=== PATIENT | female | born 1995 | race African-American/Black ===

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

== ENCOUNTER 2017-03-14 16:49 | Emergency (ER) | payer MEDICAID ==
[2016-11-02 05:37] VITALS: BMI 44.2
== END 2017-03-14 18:18 | disposition home or self-care (01) ==
LOC: D.ER 16:49
DX: J06.9 Acute upper respiratory infection, unspecified (principal); J01.90 Acute sinusitis, unspecified

== ENCOUNTER 2017-07-07 18:50 | Outpatient (CLI) | payer MEDICAID ==
[2016-11-02 05:37] VITALS: BMI 44.2
[2017-07-07 20:06] LABS: HEMATOCRIT 36.6 % (36.0-48.0); MCH 24.3 pg (26.0-34.0); MCHC 32.8 g/dL (31.0-37.0); MCV 74.2 fL (80.0-100.0); PLATELET COUNT 198 10x3/uL (130-400); RBC 4.93 10x6/uL (4.00-5.40); RDW 15.5 % (11.5-14.5); WBC 12.5 10x3/uL (4.8-10.8)
[2017-07-07 20:14] LABS: APPEARANCE CLEAR (CLEAR); BILIRUBIN NEGATIVE (NEGATIVE); COLOR YELLOW (YELLOW); GLUCOSE NEGATIVE (NEGATIVE); KETONE NEGATIVE (NEGATIVE); NITRITE NEGATIVE (NEGATIVE); PROTEIN NEGATIVE (NEGATIVE); UROBILINOGEN NORMAL (NORMAL)
[2017-07-07 20:16] LABS: WHITE CELLS - URINE 0-5 /hpf (0-5)
[2017-07-07 20:18] LABS: BACTERIA FEW /hpf (NONE SEEN); EPITHELIAL CELLS 0-5 /hpf (0-5); RED CELLS - URINE 0-5 /hpf (0-5)
[2017-07-07 20:45] LABS: LYMPHOCYTES 15 % (15-50); MONOCYTES 1 % (2-11); NEUTROPHILS 83 % (40-80)
[2017-07-07 20:46] LABS: PLATELET ESTIMATE NORMAL; POIKILOCYTOSIS OCC; ROULEAUX OCC; TARGET CELLS OCC
== END 2017-07-08 01:36 | disposition home or self-care (01) ==
LOC: D.ER 18:50 → D.LDO 18:50
PROVIDERS: Family Medicine
DX: O26.892 Other specified pregnancy related conditions, second trimester (principal); Z3A.23 23 weeks gestation of pregnancy; R10.9 Unspecified abdominal pain

== ENCOUNTER → 2017-08-11 13:53 | Outpatient (CLI) | payer MEDICAID ==
[2016-11-02 05:37] VITALS: BMI 44.2
[2017-08-11 14:30] LABS: APPEARANCE CLEAR (CLEAR); BILIRUBIN NEGATIVE (NEGATIVE); COLOR YELLOW (YELLOW); GLUCOSE NEGATIVE (NEGATIVE); KETONE SMALL mg/dL (NEGATIVE); NITRITE NEGATIVE (NEGATIVE); PROTEIN NEGATIVE (NEGATIVE); UROBILINOGEN NORMAL (NORMAL)
[2017-08-11 14:32] LABS: RED CELLS - URINE 0-5 /hpf (0-5); WHITE CELLS - URINE 0-5 /hpf (0-5)
[2017-08-11 14:33] LABS: BACTERIA MODERATE /hpf (NONE SEEN)
[2017-08-11 14:37] LABS: UDS - AMPHET NEGATIVE QUAL (NEGATIVE); UDS - BARB NEGATIVE QUAL (NEGATIVE); UDS - BENZO NEGATIVE QUAL (NEGATIVE); UDS - COCAINE NEGATIVE QUAL (NEGATIVE); UDS - OPIATE NEGATIVE QUAL (NEGATIVE); UDS - PCP NEGATIVE QUAL (NEGATIVE); UDS - THC NEGATIVE QUAL (NEGATIVE)
== END | disposition home or self-care (01) ==
LOC: D.LDO 13:53
PROVIDERS: Obstetrics & Gynecology
DX: O26.893 Other specified pregnancy related conditions, third trimester (principal); Z3A.28 28 weeks gestation of pregnancy

== ENCOUNTER 2017-08-18 17:53 | Outpatient (CLI) | payer MEDICAID ==
[2016-11-02 05:37] VITALS: BMI 44.2
== END 2017-08-18 19:46 | disposition home or self-care (01) ==
LOC: D.ER 17:53 → D.LDO 17:53 → EDSTATUS 18:00 → D.LDO 19:46
DX: O26.893 Other specified pregnancy related conditions, third trimester (principal); Z3A.29 29 weeks gestation of pregnancy; R42 Dizziness and giddiness; R53.1 Weakness

== ENCOUNTER 2017-09-05 22:24 | Outpatient (CLI) | payer MEDICAID ==
[2016-11-02 05:37] VITALS: BMI 44.2
[2017-09-06 00:51] LABS: APPEARANCE HAZY (CLEAR); BILIRUBIN NEGATIVE (NEGATIVE); COLOR YELLOW (YELLOW); GLUCOSE NEGATIVE (NEGATIVE); KETONE NEGATIVE (NEGATIVE); NITRITE NEGATIVE (NEGATIVE); PROTEIN NEGATIVE (NEGATIVE); UROBILINOGEN NORMAL (NORMAL)
[2017-09-06 00:52] LABS: BACTERIA MODERATE /hpf (NONE SEEN); EPITHELIAL CELLS 0-5 /hpf (0-5); RED CELLS - URINE 0-5 /hpf (0-5); WHITE CELLS - URINE 0-5 /hpf (0-5)
== END 2017-09-06 02:12 | disposition home or self-care (01) ==
LOC: D.LDO 22:24
PROVIDERS: Obstetrics & Gynecology
DX: O26.899 Other specified pregnancy related conditions, unspecified trimester (principal); Z3A.00 Weeks of gestation of pregnancy not specified

== ENCOUNTER 2017-09-25 20:43 | Outpatient (CLI) | payer SELFPAY ==
[2016-11-02 05:37] VITALS: BMI 44.2
[2017-09-25 21:39] LABS: APPEARANCE CLEAR (CLEAR); BILIRUBIN 1+ (NEGATIVE); COLOR DK YELLOW (YELLOW); GLUCOSE NEGATIVE (NEGATIVE); KETONE MODERATE mg/dL (NEGATIVE); NITRITE NEGATIVE (NEGATIVE); PROTEIN NEGATIVE (NEGATIVE)
[2017-09-25 21:40] LABS: RED CELLS - URINE 0-5 /hpf (0-5); WHITE CELLS - URINE 0-5 /hpf (0-5)
[2017-09-25 21:42] LABS: BACTERIA FEW /hpf (NONE SEEN)
[2017-09-25 21:58] LABS: UDS - AMPHET NEGATIVE QUAL (NEGATIVE); UDS - BARB NEGATIVE QUAL (NEGATIVE); UDS - BENZO NEGATIVE QUAL (NEGATIVE); UDS - COCAINE NEGATIVE QUAL (NEGATIVE); UDS - OPIATE NEGATIVE QUAL (NEGATIVE); UDS - PCP NEGATIVE QUAL (NEGATIVE); UDS - THC NEGATIVE QUAL (NEGATIVE)
[2017-09-25 22:29] LABS: APPEARANCE HAZY (CLEAR); BILIRUBIN 1+ (NEGATIVE); COLOR YELLOW (YELLOW); GLUCOSE NEGATIVE (NEGATIVE); KETONE MODERATE mg/dL (NEGATIVE); NITRITE NEGATIVE (NEGATIVE); PROTEIN NEGATIVE (NEGATIVE); RED CELLS - URINE 0-5 /hpf (0-5); SPECIFIC GRAVITY 1.015 (1.005-1.020)
[2017-09-25 22:30] LABS: BACTERIA FEW /hpf (NONE SEEN)
== END 2017-09-26 00:51 | disposition home or self-care (01) ==
LOC: D.LDO 20:43 → D.LD 22:52 → D.LDO 09-26 00:51
PROVIDERS: Obstetrics & Gynecology
DX: O26.899 Other specified pregnancy related conditions, unspecified trimester (principal); Z3A.00 Weeks of gestation of pregnancy not specified; R10.30 Lower abdominal pain, unspecified

== ENCOUNTER → 2017-10-08 00:01 | Outpatient (CLI) | payer SELFPAY ==
[2016-11-02 05:37] VITALS: BMI 44.2
[2017-10-08 00:33] LABS: COLOR DK YELLOW (YELLOW)
[2017-10-08 00:34] LABS: APPEARANCE CLOUDY (CLEAR); BILIRUBIN NEGATIVE (NEGATIVE); GLUCOSE NEGATIVE (NEGATIVE); KETONE NEGATIVE (NEGATIVE); NITRITE NEGATIVE (NEGATIVE); PROTEIN NEGATIVE (NEGATIVE); UROBILINOGEN NORMAL (NORMAL)
[2017-10-08 00:44] LABS: BACTERIA MODERATE /hpf (NONE SEEN); CALCIUM OXALATE CRYSTALS >50 /hpf (NONE SEEN); GRANULAR CAST OCC /lpf (NONE SEEN); HYALINE CAST OCC /lpf (NONE SEEN); RED CELLS - URINE 0-5 /hpf (0-5)
== END | disposition home or self-care (01) ==
LOC: D.LDO 00:01
PROVIDERS: Obstetrics & Gynecology
DX: O26.893 Other specified pregnancy related conditions, third trimester (principal); Z3A.36 36 weeks gestation of pregnancy

== ENCOUNTER 2017-10-12 01:48 | Outpatient (CLI) | payer SELFPAY ==
[2016-11-02 05:37] VITALS: BMI 44.2
== END 2017-10-12 02:33 ==
LOC: D.LDO 01:48
DX: O26.893 Other specified pregnancy related conditions, third trimester (principal); Z3A.37 37 weeks gestation of pregnancy

== ENCOUNTER 2017-10-16 00:52 | Outpatient (CLI) | payer SELFPAY ==
[2016-11-02 05:37] VITALS: BMI 44.2
== END 2017-10-16 01:48 ==
LOC: D.LDO 00:52
DX: O26.893 Other specified pregnancy related conditions, third trimester (principal); Z3A.36 36 weeks gestation of pregnancy

== ENCOUNTER → 2017-10-21 10:56 | Outpatient (CLI) | payer SELFPAY ==
[2016-11-02 05:37] VITALS: BMI 44.2
[2017-10-21 11:48] LABS: APPEARANCE HAZY (CLEAR); BILIRUBIN NEGATIVE (NEGATIVE); COLOR DK YELLOW (YELLOW); GLUCOSE NEGATIVE (NEGATIVE); KETONE LARGE mg/dL (NEGATIVE); NITRITE NEGATIVE (NEGATIVE); PROTEIN NEGATIVE (NEGATIVE); UROBILINOGEN NORMAL (NORMAL)
[2017-10-21 11:55] LABS: BACTERIA MODERATE /hpf (NONE SEEN); EPITHELIAL CELLS 0-5 /hpf (0-5); RED CELLS - URINE OCC /hpf (0-5)
== END | disposition home or self-care (01) ==
LOC: D.LDO 10:56
PROVIDERS: Obstetrics & Gynecology
DX: O26.893 Other specified pregnancy related conditions, third trimester (principal); Z3A.38 38 weeks gestation of pregnancy

== ENCOUNTER 2017-10-24 08:45 | Inpatient (IN) | payer MEDICAID ==
[~2017-10-24] VITALS: Ht 157.5 cm; Wt 110.5 kg
--- NOTE | ~2017-10-24 | DS ---
PATIENT:MONICA MCLAIN :89 MEDICAL RECORD: [id number] DISCHARGE SUMMARY ADMISSION DATE: 10/24/17 DISCHARGE DATE: 10/26/17 HOSPITAL COURSE: The patient was admitted on 10/24/2017. A 22-year-old at 38 weeks and 6 days, who was admitted in active labor. The patient was noted to be group B strep positive with a history of chlamydia. The patient reported no other significant past medical history. The patient reported no previous surgeries and no allergies. MEDICATIONS: Included just vitamins. FAMILY HISTORY: The patient reported no significant family history. SOCIAL HISTORY: Negative for tobacco, alcohol, or drugs. PHYSICAL EXAMINATION: VITAL SIGNS: On initial evaluation, vital signs were stable. LUNGS: Clear to auscultation. CARDIOVASCULAR: Regular rate and rhythm. PELVIC: Uterus was appropriately sized and appropriately tender. EXTREMITIES: Lower extremities were free of Homans sign, erythema, or swelling. Initial assessment revealed a category 1 tracing with the 140 heart rate with moderate variability. Contractions were noted to be regular. Admit hemoglobin was 11.2 with a platelet count of 230. ASSESSMENT AND PLAN: At that time: 1. Term intrauterine at 38 weeks and 6 days. 2. Labor. 3. Positive group B strep. Plan at that time to start antibiotics for the group B strep status with expectant management of labor and a Category 1 tracing. Following first dose of antibiotics, AROM was performed with clear fluid. The patient progressed to the second stage of labor without difficulty and had normal spontaneous vaginal delivery. Placenta was delivered spontaneously intact. Delivery note is as on the chart. The patient did well overnight on day #0, tolerating p.o. pain meds and general diet, ambulating well and voiding freely. On the morning of day #1, the patient continued to do well. Vital signs were stable. The patient was afebrile, tolerating general diet and p.o. pain meds. The patient was kept overnight on day #1 due to the baby's group B strep status. On the morning of day #2, the patient continued to do well. Vital signs were stable. The patient was afebrile. Hemoglobin was found to be appropriate for blood loss. The patient was discharged home on day #2 with instructions to follow up in 4 weeks. TRANSINT:[id number] Voice Confirmation ID: [id number] DOCUMENT ID: [id number] DISCHARGE SUMMARY REPORT [id number] MONICA MCLAIN MICHAEL W MD at 1259 CC: [id number] DICTATION DATE: 12/02/17 0832 BLAST FURNACE HELPER: 12/02/17 1148 DIS IN 10/26/17 [place] [id number] [place] [id number]
[2017-10-24 09:27] LABS: HEMATOCRIT 34.6 % (36.0-48.0); HEMOGLOBIN 11.2 g/dL (12-16); MCHC 32.4 g/dL (31.0-37.0); PLATELET COUNT 230 10x3/uL (130-400); RBC 5.09 10x6/uL (4.00-5.40); RDW 18.4 % (11.5-14.5); WBC 12.1 10x3/uL (4.8-10.8)
[2017-10-24 12:39] VITALS: BP 114/65; Ht 157.5 cm; Wt 110.5 kg
[2017-10-24 20:33] VITALS: BP 106/60
[2017-10-25 08:21] LABS: RAPID PLASMA REAGIN Non Reactive (Non Reactive)
[2017-10-25 08:28] VITALS: BP 133/73
[2017-10-25 17:45] VITALS: BP 128/71
[2017-10-25 20:15] VITALS: BP 114/64
[2017-10-26 07:48] LABS: BASOPHILS 0.2 % (0-2); EOSINOPHILS 1.6 % (0-7); HEMATOCRIT 29.5 % (36.0-48.0); HEMOGLOBIN 9.3 g/dL (12-16); IMMATURE GRANULOCYTES 0.7 % (0-5); LYMPHOCYTES 24.6 % (15-50); MCH 21.8 pg (26.0-34.0); MCHC 31.5 g/dL (31.0-37.0); MCV 69.1 fL (80.0-100.0); MONOCYTES 10.3 % (2-11); NEUTROPHILS 62.6 % (40-80); PLATELET COUNT 235 10x3/uL (130-400); RBC 4.27 10x6/uL (4.00-5.40); RDW 18.7 % (11.5-14.5); WBC 9.4 10x3/uL (4.8-10.8)
[2017-10-26 07:50] VITALS: BP 113/68
== END 2017-10-26 11:24 | disposition home or self-care (01) | DRG 775 ==
LOC: D.LD 08:45
PROVIDERS: Obstetrics & Gynecology
PROC: 10E0XZZ Delivery of Products of Conception, External Approach (ICD-10-PCS; principal; 2017-10-24)
DX: O99.214 Obesity complicating childbirth (principal); Z3A.38 38 weeks gestation of pregnancy; Z37.0 Single live birth; O99.824 Streptococcus B carrier state complicating childbirth

== ENCOUNTER 2017-12-07 19:14 | Emergency (ER) | payer MEDICAID ==
[~2017-12-07] VITALS: Ht 157.5 cm; Wt 101.8 kg
[2017-12-07 19:44] VITALS: Ht 157.5 cm; Wt 101.8 kg
[2017-12-07 19:56] LABS: BASOPHILS 0.2 % (0-2); EOSINOPHILS 2.3 % (0-7); HEMATOCRIT 34.6 % (36.0-48.0); HEMOGLOBIN 11.2 g/dL (12-16); LYMPHOCYTES 39.7 % (15-50); MCH 22.5 pg (26.0-34.0); MCHC 32.4 g/dL (31.0-37.0); MCV 69.5 fL (80.0-100.0); MONOCYTES 7.4 % (2-11); NEUTROPHILS 50.4 % (40-80); PLATELET COUNT 241 10x3/uL (130-400); RBC 4.98 10x6/uL (4.00-5.40); RDW 20.2 % (11.5-14.5); WBC 6.6 10x3/uL (4.8-10.8)
[2017-12-07 20:16] LABS: HCG SERUM NEGATIVE (NEGATIVE)
[2017-12-07 20:19] LABS: ALBUMIN 3.5 g/dL (3.4-5.0); ALKALINE PHOSPHATASE 64 U/L (46-116); ALT (SGPT) 15 U/L (10-68); BILIRUBIN - TOTAL 0.15 mg/dL (0.2-1.3); CALC OSMOLALITY 283 mosm/kg (275-300); CALCIUM 8.4 mg/dL (8.5-10.1); CHLORIDE - SERUM 108 mmol/L (98-107); CREATININE - SERUM 0.8 mg/dL (0.6-1.3); GLUCOSE 99 mg/dL (74-106); POTASSIUM - SERUM 3.9 mmol/L (3.5-5.1); PROTEIN - SERUM 7.3 g/dL (6.4-8.2); SODIUM 143 mmol/L (136-145); UREA NITROGEN 10 mg/dL (7-18); eGFR NON AFRICAN AMERICAN > 90 mL/min (90-120)
[2017-12-07 22:44] VITALS: BP 128/72
== END 2017-12-07 22:44 | disposition home or self-care (01) ==
LOC: D.ER 19:14
PROVIDERS: Emergency Medicine
DX: N93.9 Abnormal uterine and vaginal bleeding, unspecified (principal); T83.89XA Other specified complication of genitourinary prosthetic devices, implants and grafts, initial encounter

== ENCOUNTER 2018-09-30 21:17 | Emergency (ER) | payer MEDICAID ==
[~2018-09-30] VITALS: Ht 157.5 cm; Wt 104.5 kg
[2018-09-30 21:22] VITALS: Ht 157.5 cm; Wt 104.5 kg
[2018-09-30] MEDS ORDERED: [UNRECOGNIZED DRUG - OTHER] (21:23)
[2018-09-30 22:38] LABS: BASOPHILS 0.2 % (0-2); EOSINOPHILS 1.6 % (0-7); HEMATOCRIT 39.7 % (36.0-48.0); HEMOGLOBIN 13.2 g/dL (12-16); IMMATURE GRANULOCYTES 0.2 % (0-5); LYMPHOCYTES 33.9 % (15-50); MCH 24.6 pg (26.0-34.0); MCHC 33.2 g/dL (31.0-37.0); MCV 74.1 fL (80.0-100.0); MEAN PLATELET VOLUME 10.8 fL (7.4-10.4); NEUTROPHILS 58.1 % (40-80); PLATELET COUNT 272 10x3/uL (130-400); RBC 5.36 10x6/uL (4.00-5.40); RDW 15.6 % (11.5-14.5); WBC 8.8 10x3/uL (4.8-10.8)
[2018-09-30 22:50] LABS: HCG SERUM NEGATIVE (NEGATIVE)
[2018-09-30 22:53] LABS: APPEARANCE CLEAR (CLEAR); BILIRUBIN NEGATIVE (NEGATIVE); COLOR YELLOW (YELLOW); GLUCOSE NEGATIVE (NEGATIVE); KETONE NEGATIVE (NEGATIVE); NITRITE NEGATIVE (NEGATIVE); PROTEIN NEGATIVE (NEGATIVE); SPECIFIC GRAVITY 1.015 (1.005-1.020); UROBILINOGEN NORMAL (NORMAL)
[2018-09-30 22:54] LABS: ALBUMIN 3.6 g/dL (3.4-5.0); ALKALINE PHOSPHATASE 88 U/L (46-116); ALT (SGPT) 66 U/L (10-68); BILIRUBIN - TOTAL 0.21 mg/dL (0.2-1.3); CALC OSMOLALITY 280 mosm/kg (275-300); CALCIUM 8.8 mg/dL (8.5-10.1); CARBON DIOXIDE 26.5 mmol/L (21.0-32.0); CHLORIDE - SERUM 107 mmol/L (98-107); CREATININE - SERUM 0.8 mg/dL (0.6-1.3); GLUCOSE 88 mg/dL (74-106); PROTEIN - SERUM 7.6 g/dL (6.4-8.2); SODIUM 142 mmol/L (136-145); UREA NITROGEN 11 mg/dL (7-18); eGFR NON AFRICAN AMERICAN > 90 mL/min (90-120)
[2018-09-30 22:54] LABS: BACTERIA FEW /hpf (NONE SEEN); RED CELLS - URINE OCC /hpf (0-5); WHITE CELLS - URINE 0-5 /hpf (0-5)
[2018-10-01] MEDS ORDERED: NAPROSYN500 MG PO (00:18)
[2018-10-01 00:31] VITALS: BP 127/83
== END 2018-10-01 00:31 | disposition home or self-care (01) ==
LOC: D.ER 21:17
PROVIDERS: Family Medicine
DX: R10.2 Pelvic and perineal pain (principal); N93.9 Abnormal uterine and vaginal bleeding, unspecified

== ENCOUNTER 2019-12-01 17:13 | Emergency (ER) | payer MEDICAID ==
[~2019-12-01] VITALS: Ht 157.5 cm; Wt 104.5 kg
[~2019-12-01 17:13] MED LIST changes: +NAPROSYN500 MG PO; +[UNRECOGNIZED DRUG - OTHER]
[2019-12-01 17:19] VITALS: Ht 157.5 cm; Wt 104.5 kg
[2019-12-01 17:57] LABS: CALC OSMOLALITY 278 mosm/kg (275-300); CALCIUM 8.5 mg/dL (8.5-10.1); CARBON DIOXIDE 27.4 mmol/L (21.0-32.0); CHLORIDE - SERUM 103 mmol/L (98-107); CREATININE - SERUM 0.8 mg/dL (0.6-1.3); GLUCOSE 103 mg/dL (74-106); POTASSIUM - SERUM 3.2 mmol/L (3.5-5.1); SODIUM 141 mmol/L (136-145); UREA NITROGEN 6 mg/dL (7-18); eGFR NON AFRICAN AMERICAN > 90 mL/min (90-120)
[2019-12-01 18:03] LABS: ALBUMIN 3.2 g/dL (3.4-5.0); ALKALINE PHOSPHATASE 70 U/L (30-120); ALT (SGPT) 25 U/L (10-68); BILIRUBIN - TOTAL 0.44 mg/dL (0.2-1.3); PROTEIN - SERUM 7.1 g/dL (6.4-8.2)
[2019-12-01 18:07] LABS: HEMATOCRIT 37.9 % (36.0-48.0); HEMOGLOBIN 12.5 g/dL (12-16); MCH 25.2 pg (26.0-34.0); MCV 76.4 fL (80.0-100.0); MEAN PLATELET VOLUME 10.5 fL (7.4-10.4); PLATELET COUNT 204 10x3/uL (130-400); RBC 4.96 10x6/uL (4.00-5.40); RDW 14.8 % (11.5-14.5); WBC 20.9 10x3/uL (4.8-10.8)
[2019-12-01 18:38] LABS: EOSINOPHILS 1 % (0-7); LYMPHOCYTES 15 % (15-50); MONOCYTES 3 % (2-11); NEUTROPHILS 81 % (40-80); PLATELET ESTIMATE NORMAL
[2019-12-01 18:47] LABS: BILIRUBIN NEGATIVE (NEGATIVE); KETONE NEGATIVE (NEGATIVE); NITRITE NEGATIVE (NEGATIVE); UROBILINOGEN NORMAL (NORMAL)
[2019-12-01 18:48] LABS: BACTERIA MANY /hpf (NONE SEEN); EPITHELIAL CELLS 0-5 /hpf (0-5); RED CELLS - URINE 0-5 /hpf (0-5)
[2019-12-01 18:52] LABS: HCG URINE NEGATIVE (NEGATIVE)
[2019-12-01 18:58] LABS: HCG SERUM NEGATIVE (NEGATIVE)
[2019-12-01] MEDS ORDERED: HYDROCODON-ACE1 EAC7 PO (19:08)
[2019-12-01] MEDS ORDERED: AMOXICILLIN500 M1 PO (19:08)
[2019-12-01 19:55] VITALS: BP 132/89
== END 2019-12-01 19:55 | disposition home or self-care (01) ==
LOC: D.ER 17:13
PROVIDERS: Family Medicine
DX: J02.9 Acute pharyngitis, unspecified (principal); J03.90 Acute tonsillitis, unspecified